=== PATIENT | female | born 1970 | race Caucasian/White ===

== ENCOUNTER 2018-05-17 21:55 | Emergency (ER) | payer MEDICAID ==
[~2018-05-17] VITALS: Ht 165.1 cm; Wt 56.9 kg
[2018-05-17 22:01] VITALS: BP 170/146
[2018-05-17] MEDS ORDERED: amoxicillin 250mg capsule PO ONE (22:15)
[2018-05-17] MEDS ORDERED: AMOX500C2 PO (22:23)
== END 2018-05-17 22:36 | disposition home or self-care (01) ==
LOC: ER 21:56
DX: K04.7 Periapical abscess without sinus (principal); Z98.51 Tubal ligation status; Z88.5 Allergy status to narcotic agent
CPT/HCPCS: 41800; 99283